=== PATIENT | male | born 1980 | race African-American/Black ===

== ENCOUNTER 2016-09-04 11:11 | Inpatient (IN) | payer MEDICARE, MEDICAID ==
[~2016-09-04] VITALS: Ht 157.5 cm; Wt 59.4 kg
[~2016-09-04 11:11] MED LIST: BACITRACIN 50,000 UNITS INJ IRRIG ONE; BUPIVACA/EPI 0.5% 50ML NERVEBLOCK ONE; GELATIN SPONGE 12 CM2 TOPICAL ONE; THROMBIN 5000 UNIT KIT TOPICAL ONE
[2016-09-04] MEDS ORDERED: SALINE FLUSH 10 ML FLUSH PRN (20:25)
[2016-09-04] MEDS ORDERED: BISACODYL 10 MG SUPP RECTAL PRN (20:25)
[2016-09-04] MEDS ORDERED: ALU/MAG/SIM 30 ML UDC PO PRN (20:25)
[2016-09-04] MEDS ORDERED: MAG HYDROX 30 ML UDC PO PRN (20:25)
[2016-09-04] MEDS ORDERED: ACETAMINOPHEN 325 MG TAB PO PRN (20:25)
[2016-09-04] MEDS ORDERED: BISACODYL EC 5 MG TAB PO PRN (20:25)
[2016-09-04 20:54] VITALS: BP_SYST 132; BP_SYST 138; RESP 18; TEMP 98.5; Ht 157.5 cm; Wt 59.4 kg
[2016-09-04 23:16] VITALS: BP_SYST 122; RESP 18; TEMP 98.1
[2016-09-05 04:20] VITALS: BP_SYST 123; RESP 18; TEMP 97.5
[2016-09-05] MEDS: SODIUM CHLORIDE 0.9% FLUSH BAG 500 ML IV SCH (06:00)
[2016-09-05] MEDS: PANTOPRAZOLE 20 MG TAB PO SCH (06:56)
[2016-09-05 08:19] VITALS: BP_SYST 124; RESP 16; TEMP 97.9
[2016-09-05] MEDS ORDERED: METHYLCELLULOSE PO SCH (08:50)
[2016-09-05] MEDS ORDERED: [UNRECOGNIZED DRUG - OTHER] PO SCH (08:50)
[2016-09-05] MEDS: LYSINE 1000 MG PO SCH (09:00)
[2016-09-05] MEDS: TRIAMTER/HCTZ 37.5/25MG TAB PO SCH (09:43)
[2016-09-05] MEDS: ACYCLOVIR 200 MG CAP PO SCH ×2 (09:43→20:42)
[2016-09-05] MEDS: LEVETIRACETAM 500 MG TAB PO SCH ×2 (09:43→20:42)
[2016-09-05] MEDS: CETIRIZINE 10 MG TAB PO SCH (09:43)
[2016-09-05] MEDS: SALINE FLUSH 10 ML FLUSH SCH ×2 (09:43→20:00)
[2016-09-05] MEDS: SODIUM CHLORIDE 0.9% 1,000 ML IV SCH (09:50)
[2016-09-05 12:22] VITALS: BP_SYST 131; RESP 16; TEMP 98.1
[2016-09-05 15:41] VITALS: BP_SYST 135; RESP 16; TEMP 98.5
[2016-09-05 19:55] VITALS: BP_SYST 146; RESP 18; TEMP 98.6
[2016-09-05 22:49] VITALS: BP_SYST 127; RESP 16; TEMP 98.4
[2016-09-06] VITALS (7 sets, daily range): BP systolic 129–140; RESP 16–20; TEMP 97.3–98.6
[2016-09-06] MEDS: SODIUM CHLORIDE 0.9% 1,000 ML IV SCH (01:00)
[2016-09-06] MEDS: SODIUM CHLORIDE 0.9% FLUSH BAG 500 ML IV SCH (05:58)
[2016-09-06] MEDS: PANTOPRAZOLE 20 MG TAB PO SCH (06:19)
[2016-09-06] MEDS: SALINE FLUSH 10 ML FLUSH SCH ×2 (07:12→21:08)
[2016-09-06] MEDS: LYSINE 1000 MG PO SCH (08:16)
[2016-09-06] MEDS: LEVETIRACETAM 500 MG TAB PO SCH ×2 (08:18→21:08)
[2016-09-06] MEDS: ACYCLOVIR 200 MG CAP PO SCH ×2 (08:18→21:08)
[2016-09-06] MEDS: TRIAMTER/HCTZ 37.5/25MG TAB PO SCH (08:18)
[2016-09-06] MEDS: CETIRIZINE 10 MG TAB PO SCH (08:18)
[2016-09-06] MEDS ORDERED: LIDOCAINE 1% BUFFERED 1 ML SYR INTRADERM PRN (17:35)
[2016-09-06] MEDS ORDERED: LACT RINGERS 1,000 ML IV SCH (17:35)
[2016-09-06] MEDS ORDERED: GLYCOPYRROLATE 0.2 MG/ML VIAL IV ONE (17:35)
[2016-09-06] MEDS ORDERED: MIDAZOLAM 2 MG/2 ML INJ IV ONE (17:35)
[2016-09-07] VITALS (19 sets, daily range): BP systolic 122–147; RESP 13–20; TEMP 97–98.3
[2016-09-07] MEDS: SODIUM CHLORIDE 0.9% FLUSH BAG 500 ML IV SCH (04:15)
[2016-09-07] MEDS: SODIUM CHLORIDE 0.9% 1,000 ML IV SCH (04:41)
[2016-09-07] MEDS: PANTOPRAZOLE 20 MG TAB PO SCH (06:46)
[2016-09-07] MEDS: LYSINE 1000 MG PO SCH (07:23)
[2016-09-07] MEDS: SALINE FLUSH 10 ML FLUSH SCH ×2 (07:23→19:21)
[2016-09-07] MEDS: CETIRIZINE 10 MG TAB PO SCH (07:24)
[2016-09-07] MEDS: ACYCLOVIR 200 MG CAP PO SCH ×2 (07:25→20:41)
[2016-09-07] MEDS ORDERED: ROCURONIUM 50 MG VIAL IV ONE (07:57)
[2016-09-07] MEDS ORDERED: GLYCOPYRROLATE 0.2 MG/ML VIAL IV ONE (07:57)
[2016-09-07] MEDS ORDERED: FENTANYL 100 MCG/2 ML AMP IV ONE (07:57)
[2016-09-07] MEDS ORDERED: NEOSTIGMINE 10 MG/10 ML VIAL IV ONE (07:57)
[2016-09-07] MEDS ORDERED: ACETAMINOPHEN 1,000 MG/100 ML IV ONE ×2 (07:57→14:40)
[2016-09-07] MEDS ORDERED: LIDOCAINE 2% SYR 5 ML IV ONE (07:57)
[2016-09-07] MEDS ORDERED: PROPOFOL 20 ML PER ML IV ONE (07:57)
[2016-09-07] MEDS: LEVETIRACETAM 500 MG TAB PO SCH ×2 (09:30→20:40)
[2016-09-07] MEDS: TRIAMTER/HCTZ 37.5/25MG TAB PO SCH (09:30)
[2016-09-07] MEDS ORDERED: CEFAZOLIN 2,000 MG in SODIUM CHLORIDE 0.9% 100 ML IV ONE (11:45)
[2016-09-07] MEDS ORDERED: MIDAZOLAM 2 MG/2 ML INJ ONE (13:15)
[2016-09-07] MEDS ORDERED: OXYCODONE 5 MG TAB PO PRN (14:40)
[2016-09-07] MEDS ORDERED: ONDANSETRON 4 MG VIAL IV PRN ×2 (14:40→16:25)
[2016-09-07] MEDS ORDERED: MORPHINE 4 MG/ML SYR IV PRN ×2 (14:40→16:25)
[2016-09-07] MEDS ORDERED: MEPERIDINE 25 MG/ML IV PRN (14:40)
[2016-09-07] MEDS ORDERED: MORPHINE 2 MG/ML SYR IV PRN ×2 (14:40→16:25)
[2016-09-07] MEDS ORDERED: DILAUDID 1 MG/ML AMP IV PRN (14:40)
[2016-09-07] MEDS ORDERED: SODIUM CHLORIDE 0.9% 1,000 ML IV SCH (16:25)
[2016-09-07] MEDS ORDERED: OXYCODONE/APAP 5/325 TAB PO PRN ×2 (16:25)
[2016-09-07] MEDS ORDERED: CHLORASEPTIC 180 ML BTL PO PRN (16:25)
[2016-09-07] MEDS: DOCUSATE SOD 100 MG CAP PO SCH (20:41)
[2016-09-07] MEDS: CEFAZOLIN 2,000 MG in SODIUM CHLORIDE 0.9% 100 ML IV SCH (22:15)
[2016-09-08 03:52] VITALS: BP_SYST 125; RESP 18; TEMP 97.5
[2016-09-08] MEDS: CEFAZOLIN 2,000 MG in SODIUM CHLORIDE 0.9% 100 ML IV SCH ×2 (05:01→14:12)
[2016-09-08] MEDS: PANTOPRAZOLE 20 MG TAB PO SCH (06:14)
[2016-09-08] MEDS: SODIUM CHLORIDE 0.9% FLUSH BAG 500 ML IV SCH (06:14)
[2016-09-08 07:00] VITALS: BP_SYST 132; RESP 16; TEMP 98.2
[2016-09-08] MEDS: DOCUSATE SOD 100 MG CAP PO SCH ×2 (08:52→20:50)
[2016-09-08] MEDS: LEVETIRACETAM 500 MG TAB PO SCH ×2 (08:52→20:50)
[2016-09-08] MEDS: SALINE FLUSH 10 ML FLUSH SCH ×2 (08:52→20:50)
[2016-09-08] MEDS: ACYCLOVIR 200 MG CAP PO SCH ×2 (08:53→20:50)
[2016-09-08] MEDS: TRIAMTER/HCTZ 37.5/25MG TAB PO SCH (08:53)
[2016-09-08] MEDS: CETIRIZINE 10 MG TAB PO SCH (08:53)
[2016-09-08] MEDS: LYSINE 1000 MG PO SCH (08:56)
[2016-09-08 11:00] VITALS: BP_SYST 132; RESP 18; TEMP 98.3
[2016-09-08] MEDS ORDERED: MISSING DOSE XX ONE (11:35)
[2016-09-08 15:00] VITALS: BP_SYST 134; RESP 16; TEMP 98.3
[2016-09-08 19:30] VITALS: BP_SYST 124; RESP 16; TEMP 98.7
[2016-09-08 22:49] VITALS: BP_SYST 123; RESP 16; TEMP 97.3
[2016-09-09] MEDS: SODIUM CHLORIDE 0.9% FLUSH BAG 500 ML IV SCH (01:42)
[2016-09-09 04:03] VITALS: BP_SYST 128; RESP 16; TEMP 98
[2016-09-09] MEDS: PANTOPRAZOLE 20 MG TAB PO SCH (06:10)
[2016-09-09] MEDS: CETIRIZINE 10 MG TAB PO SCH (08:35)
[2016-09-09] MEDS: LEVETIRACETAM 500 MG TAB PO SCH (08:35)
[2016-09-09] MEDS: ACYCLOVIR 200 MG CAP PO SCH (08:35)
[2016-09-09] MEDS: TRIAMTER/HCTZ 37.5/25MG TAB PO SCH (08:36)
[2016-09-09] MEDS: DOCUSATE SOD 100 MG CAP PO SCH (08:36)
[2016-09-09] MEDS: SALINE FLUSH 10 ML FLUSH SCH (08:36)
[2016-09-09 10:59] VITALS: BP_SYST 128; RESP 16; TEMP 98
== END 2016-09-09 12:32 | disposition home or self-care (01) | DRG 472 ==
LOC: ENRESERVDT → ENRESERVTM → ENRESERV → ER 11:11 → EMR 19:26 → ENPENDDIS 19:26 → 2NO 20:53
PROVIDERS: ADMIT Internal Medicine; ATTEND Internal Medicine
PROC: 0RG10K0 Fusion of Cervical Vertebral Joint with Nonautologous Tissue Substitute, Anterior Approach, Anterior Column, Open Approach (ICD-10-PCS; 2016-09-07)
PROC: 0RT30ZZ Resection of Cervical Vertebral Disc, Open Approach (ICD-10-PCS; principal; 2016-09-07 14:00)
DX: M50.022 Cervical disc disorder at C5-C6 level with myelopathy (principal); B02.39 Other herpes zoster eye disease; N17.9 Acute kidney failure, unspecified; R56.9 Unspecified convulsions; R53.1 Weakness; I10 Essential (primary) hypertension; F79 Unspecified intellectual disabilities; J30.9 Allergic rhinitis, unspecified
CPT/HCPCS: 36415; 70450; 70551; 72141; 72146; 76000; 80048; 80053; 80177; 82550; 83735; 85025; 85610; 85730; 94799; 99232; 99238